=== PATIENT | female | born 1980 | race Caucasian/White ===

== ENCOUNTER 2018-01-28 16:05 | Emergency (ER) | payer OTHER | END 2018-01-28 16:22 | disposition home or self-care (01) | LOC: BURERS 16:05 | DX: T16.2XXA Foreign body in left ear, initial encounter (principal); Z79.899 Other long term (current) drug therapy | CPT/HCPCS: 99282 ==

== ENCOUNTER 2018-03-05 08:26 | Emergency (ER) | payer OTHER, SELFPAY | END 2018-03-05 08:46 | disposition home or self-care (01) | LOC: BURERS 08:26 | DX: Z03.89 Encounter for observation for other suspected diseases and conditions ruled out (principal); Z79.899 Other long term (current) drug therapy; F41.9 Anxiety disorder, unspecified | CPT/HCPCS: 99281 ==